=== PATIENT | female | born 1990 | race Two or more races ===

== ENCOUNTER 2024-07-25 19:20 | Emergency (ER) | payer OTHER ==
[~2024-07-25] VITALS: Ht 180.3 cm; Wt 100.0 kg
[2024-07-25] MEDS ORDERED: ceFAZolin IM 1GM/2.5ML STERILE WATER IM ONE (20:00)
[2024-07-25] MEDS ORDERED: AUG875T PO (20:04)
[2024-07-25 21:10] LABS: Urine Bacteria FEW /hpf (None Seen); Urine Blood Negative /uL (Negative); Urine Clarity Clear (Clear); Urine Color Yellow (Yellow); Urine Mucus FEW (None Seen); Urine Protein, UAD 1+ (Negative); Urine Specific Gravity 1.048 (1.001-1.035); Urine Urobilinogen 2 mg/dL (Negative); Urine WBC 3 /hpf (0 - 5)
[2024-07-25 22:00] VITALS: BP 110/74; PULSE 71; RESP 18; TEMP 98; O2SAT 98
[2024-07-25] MEDS: ceFAZolin 1GM VL ONE ×2 (22:06→22:07)
[2024-07-25] MEDS: ceFAZolin IM 1GM/2.5ML STERILE WATER IM ONE (22:11)
== END 2024-07-25 23:07 | disposition home or self-care (01) ==
LOC: ER 19:20
DX: L03.317 Cellulitis of buttock (principal); L02.31 Cutaneous abscess of buttock
CPT/HCPCS: 81001; 96372; 99283; J0690

== ENCOUNTER 2024-11-13 06:20 | Emergency (ER) | payer OTHER ==
[~2024-11-13] VITALS: Ht 180.3 cm; Wt 102.7 kg
[~2024-11-13 06:20] MED LIST: AUG875T PO
[2024-11-13 07:15] VITALS: BP 116/83; PULSE 78; RESP 16; TEMP 98.8; O2SAT 99
--- NOTE | 2024-11-13 08:26 | ED.PDOC ---
EDITORIAL CARTOONIST HPI Comments A 34 YEAR OLD FEMALE PRESENTS TO THE ED WITH COMPLAINT OF LEFT-SIDED PELVIC PAIN. PATIENT STATES SHE HAS BEEN EXPERIENCING LEFT-SIDED PELVIC PAIN FOR THE PAST 3 DAYS. PATIENT REPORTS SHE WENT TO AN URGENT CARE YESTERDAY WHERE SHE WAS TOLD SHE MIGHT HAVE AND LEFT OVARIAN CYST DESPITE NO IMAGING BEING DONE AND WAS INSTRUCTED TO GO TO THE ED FOR EVALUATION. PATIENT DENIES DYSURIA, HEMATURIA, VAGINAL DISCHARGE, FEVER, CHILLS, SHORTNESS OF BREATH, CHEST PAIN, ABDOMINAL PAIN, NAUSEA, VOMITING, HEADACHE, OR OTHER COMPLAINTS. NO OTHER SYMPTOMS OR MODIFYING FACTORS AT THIS TIME. PATIENT IS ALERT, ORIENTED X 4, AND HAS STEADY GAIT. Chief Complaint: Pelvic Pain Time Seen by MD: 07:00 Reviewed Notes: Nurses Notes, Medications, Allergies Allergies: Coded Allergies: NO KNOWN ALLERGIES (Unverified , 07/25/24) Home Meds Active Scripts Amoxicillin & Pot Clavulanate (AUGMENTIN TABLET) 875 Mg Tb, 875 MG PO BID for 10 Days, #20 TAB Prov:SUJATHA KELLER MD 07/25/24 Information Source: Patient Mode of Arrival: Ambulatory Timing: Days Prehospital treatment: None Severity: Moderate Vaginal Discharge: None Vaginal Lesions: None Vaginal Mass: None Onset Of Mass/Bleeding: Spontaneous Sexual Activity: Neither Last Consensual [place]: Unknown Control: None Blood Type: Unknown Symptoms of Possible : None Associated Signs and Symptoms: Other (LEFT PELVIC PAIN) Past Medical History PAST MEDICAL HISTORY: Denies Surgical History: Denies all surgeries 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 Hx Family History Family History: Reviewed,noncontributory to illness Social History Smoker: Non-Smoker Alcohol: Denies ETOH Use Drugs: Denies Drug Use Lives In: Home Constitutional: denies: chills, diaphoresis, fatigue, fever, malaise, sweats, weakness, others EENTM: denies: blurred vision, double vision, ear bleeding, ear discharge, ear drainage, ear pain, ear ringing, eye pain, eye redness, hearing loss, mouth pain, mouth swelling, nasal discharge, nose bleeding, nose congestion, nose pain, photophobia, tearing, throat pain, throat swelling, voice changes, others Respiratory: denies: cough, hemoptysis, orthopnea, SOB at rest, shortness of breath, SOB with excertion, stridor, wheezing, others Cardiovascular: denies: chest pain, dizzy spells, diaphoresis, Dyspnea on ex ertion, edema, irregular heart beat, left arm pain, lightheadedness, palpitations, PND, syncope, others Gastrointestinal: denies: abdomen distended, abdominal pain, blood streaked bowels, constipated, diarrhea, dysphagia, difficulty swallowing, hematemesis, melena, nausea, poor appetite, poor fluid intake, rectal bleeding, rectal pain, vomiting, others Genitourinary: reports: pain (LEFT-SIDED PELVIC PAIN); denies: abnormal vagina bleeding, burning, dyspareunia, dysuria, flank pain, frequency, hematuria, incontinence, , vagina discharge, urgency, others Neurological: denies: dizziness, fainting, headache, left sided numbness, left sided weakness, numbness, paresthesia, pre-existing deficit, right sided numbness, right sided weakness, seizure, speech problems, tingling, tremors, weakness, others Musculoskeletal: denies: back pain, gout, joint pain, joint swelling, muscle pain, muscle stiffness, neck pain, others Integumetry: denies: bruises, change in color, change in hair/nails, dryness, laceration, lesions, lumps, rash, wounds, others Allergic/Immunocompromised: denies: Difficulty Healing, Frequent Infections, Hives, Itching, others Hematologic/Lymphatic: denies: anemia, blood clots, easy bleeding, easy br uising, swollen glands, others Endocrine: denies: excessive hunger, excessive sweating, excessive thirst, excessive urination, flushing, intolerance to cold, intolerance to heat, unexplained weight gain, unexplained weight loss, others Psychiatric: denies: anxiety, bipolar disorder, depression, hopeless, panic disorder, schizophrenia, sleepless, suicidal, others All Other Systems: Reviewed and Negative Physical Exam General Appearance: No Apparent Distress, Normal HEENT: Normal ENT Inspection, PERRL/EOMI, Pharynx Normal, TMs Normal Neck: Full Range of Motion, Non-Tender, Normal, Normal Inspection Respiratory: Chest Non-Tender, Lungs Clear, No Accessory Muscle Use, No Respiratory Distress, Normal Breath Sounds Cardiovascular: No Edema, No JVD, No Murmur, No Gallop, Normal Peripheral Pulses, Regular Rate/Rhythm Breast Exam: Deferred Gastrointestinal: No Organomegaly, No Pulsatile Mass, Normal Bowel Sounds, So ft, Tenderness (LEFT LOWER PELVIC, NO GUARDING AND REBOUND TENDERNESS. ) Genitalia: Deferred Pelvic: Tender Adnexa (TENDERNESS LEFT PELVIC, NO GUARDING AND REBOUND TENDERNESS. ) Rectal: Deferred Extremities: No calf tenderness, Normal capillary refill, Normal inspection, Normal range of motion, Non-tender, No pedal edema Musculoskeletal : Apperance: Normal Neurologic: Alert, senior research executive II-XII nml as Tested, No Motor Deficits, Normal Affect, Normal Mood, No Sensory Deficits Cerebellar Function: Normal Reflexes: Normal Skin: Dry, Normal Color, Warm Peripheral Pulses: 2+ carotid (R), 2+ carotid (L) Lymphatic: No Adenopathy Was a procedure done? Was a procedure done?: No Differential Diagnosis (SHEET METAL TECHNICIAN) Vaginal Bleeding: N/A Mass / Lesion: N/A Vaginal Discharge: N/A Comments ACUTE UTI, ACUTE CYSTITIS, OVARIAN CYST, UTERINE FIBROID X-Ray, Labs, Meds, VS Vital Signs Date Time Temp Pulse Resp B/P (MAP) Pulse Ox O2 Delivery O2 Flow Rate FiO2 11/13/24 06:50 98.8 78 16 116/83 (94) 99 Lab Test 11/13/24 08:00 Range/Units Urine Color Light-yellow Yellow Urine Clarity Clear Clear Urine pH 5.5 5.0-9.0 Urine Specific [place] 1.016 1.001-1.035 Urine Protein Negative Negative Urine Ketones Negative Negative Urine Blood Negative Negative /uL Urine Nitrite Negative Negative Urine Bilirubin Negative Negative Urine Urobilinogen Normal Negative mg/dL Urine Leukocyte Esterase Negative Negative /uL Urine RBC 1 0 - 4 /hpf Urine WBC 2 0 - 5 /hpf Urine Squamous Epithelial Cells Few <5 /hpf Urine Bacteria Few H None Seen /hpf Urine Mucus Few None Seen Urine Glucose Normal Normal mg/dL Urine Test Negative Negative INDICATION: LEFT PELVIC PAIN TECHNIQUE: Multiple real-time grayscale transabdominal sonographic images along with color and duplex Doppler of the uterus and ovaries were obtained. COMPARISON: None FINDINGS: The uterus is heterogeneous and measures 16.5 cm. The endometrial stripe measures 1.8 cm. Multiple uterine fibroids are noted, the largest noted at the uterine fundus measuring 8.2 x 8.1 x 7.9 cm, not well visualized due to significant shadowing. The right ovary measures 6.6 x 4.9 x 4.9 cm. 3.6 cm anechoic and avascular structure with debris is noted within the right ovary. The left ovary is not visualized. Subsequent color and duplex Doppler interrogation demonstrated vascular flow to the right ovary. IMPRESSION: 1. Multiple uterine fibroids, the largest measuring 8.2 cm. 2. Possible right ovarian hemorrhagic cyst. ATED BY: CURTIS BORGES MD DICTATED DATE/TIME: 11/13/24939 SIGNED BY: CURTIS BORGES MD SIGNED DATE/TIME: 11/13/24939 CC: X-Ray, Labs, Meds, VS Comment EXTERNAL MEDICAL RECORDS REVIEWED: [NONE] INDEPENDENT HISTORIANS: [NONE] SOCIAL DETERMINANTS OF HEALTH: [NONE] LABS ORDERED: UA, URINE ,CBC, BMP REVIEWED AND INTERPRETED RESULTS: NORMAL IMAGING ORDERED: US PELVIS: [INTERPRETED BY US TECH. ENLARGED HETEROGENEOUS UTERUS SEEN. MULTIPLE HYPOECHOIC STRUCTURES WITH INCREASED VASCULARITY NOTED AND UTERUS LARGEST MEASURING 7.9 CM X 8.2 CM. RIGHT OVARIAN CYST MEASURING 3.6 CM X 2.5 CM VISUALIZED. LEFT OVARY IS NOT VISUALIZED. PENDING RADIOLOGY REVIEW.] TREATMENTS ORDERED: NONE PROCEDURES PERFORMED: NONE CRITICAL CARE TIME: NONE I HAVE DISCUSSED THE PATIENT WITH THE ATTENDING PHYSICIAN DR. REN AND HE AGREES WITH THE PATIENT'S PLAN OF CARE AND DISPOSITION. GIVEN THE HISTORY AND PRESENT ILLNESS OF THE PATIENT, AFTER REVIEWING LABS, IMAGING, AND COURSE OF TREATMENT ADMINISTERED DURING THEIR ED VISIT, THERE IS LOW SUSPICION FOR RED FLAG FINDINGS. BASED ON HISTORY OF PRESENT ILLNESS, AND PHYSICAL EXAM, PATIENT WILL BE DISCHARGED HOME. DISCUSSED PLAN FOR DISCHARGE HOME WITH RX [IBUPROFEN 800MG]. MEDICATION WARNINGS GIVEN. SHARED DECISION MAKING: DISCUSSED WITH PATIENT THAT THEIR WORKUP WAS NORMAL. PATIENT INSTRUCTED TO FOLLOW UP WITH PRIMARY CARE PROVIDER IN 1-2 DAYS FOR RE- EVALUATION OF SYMPTOMS. PATIENT VERBALIZES UNDERSTANDING TO RETURN TO ED FOR NEW OR WORSENING SYMPTOMS OR IF FOLLOW UP WITH PCP CANNOT BE OBTAINED. PATIENT FEELS COMFORTABLE GOING HOME AT THIS TIME. ALL QUESTIONS ADDRESSED AT TIME OF DISCHARGE. Images Reviewed?: Images reviewed and evaluated by me Time of 1ST Reevaluation: 10:18 Reevaluation 1ST: Improved Patient Education/Counseling: Diagnosis, Treatment, Need For Follow Up Family Education/Counseling: Diagnosis, Treatment, Need For Follow Up Medical Screening: No EMC Exist At This Time Departure 1 Departure Time of Disposition: 10:20 Impression: Primary Impression: Uterine fibroid Qualified Codes: D25.9 - Leiomyoma of uterus, unspecified Additional Impression: Right ovarian cyst Disposition: HOME / SELF CARE / HOMELESS Condition: Stable Additional Instructions: FOLLOW-UP WITH PCP IN 1 TO 2 DAYS. TAKE MEDICATIONS PRESCRIBED. RETURN TO ED FOR ANY NEW OR WORSENING SYMPTOMS. Written Prescriptions PT DECLINED PAIN MEDICATION AND RX. Discharged With: Self Critical Care Note Critical Care Time?: No Stability Stability form required: No I personally scribed for MARILOU LEE ([email or web address]) on 11/13/24 at 08:26. Electronically submitted by Ranjit Ribeiro ([employer]). I personally scribed for MARILOU LEE ([email or web address]) on 11/13/24 at 09:39. Electronically submitted by Ranjit Ribeiro ([employer]). I personally scribed for MARILOU LEE ([email or web address]) on 11/13/24 at 09:43. Electronically submitted by Ranjit Ribeiro ([employer]). I personally scribed for MARILOU LEE ([email or web address]) on 11/13/24 at 09:44. Electronically submitted by Ranjit Ribeiro ([employer]). MARILOU LEE Nov 13, 2024 08:26
[2024-11-13 08:39] LABS: Urine Bacteria FEW /hpf (None Seen); Urine Blood Negative /uL (Negative); Urine Clarity Clear (Clear); Urine Color Light-Yellow (Yellow); Urine Mucus FEW (None Seen); Urine Protein, UAD Negative (Negative); Urine Specific Gravity 1.016 (1.001-1.035); Urine Urobilinogen Normal (Negative); Urine WBC 2 /hpf (0 - 5); Urine pH 5.5 (5.0-9.0)
--- NOTE | 2024-11-13 09:42 | DVH ---
INDICATION: LEFT PELVIC PAIN TECHNIQUE: Multiple real-time grayscale transabdominal sonographic images along with color and duplex Doppler of the uterus and ovaries were obtained. COMPARISON: None FINDINGS: The uterus is heterogeneous and measures 16.5 cm. The endometrial stripe measures 1.8 cm. M ultiple uterine fibroids are noted, the largest noted at the uterine fundus measuring 8.2 x 8.1 x 7.9 cm, not well visualized due to significant shadowing. The right ovary measures 6.6 x 4.9 x 4.9 cm. 3.6 cm anechoic and avascular structure with debris is n oted within the right ovary. The left ovary is not visualized. Subsequent color and duplex Doppler interrogation demonstrated vascular flow to the right ovary. IMPRESSION: 1. Multiple uterine fibroids, the largest measuring 8.2 cm. 2. Possible right ovarian hemorrhagic cyst.
[2024-11-13 10:40] LABS: Basophils # (auto) 0 10 ^3/uL (0-0.2); Basophils % (auto) 0.9 % (0.0-2.0); Eosinophils # (auto) 0.1 10 ^3/uL (0-0.8); Eosinophils % (auto) 1.2 % (0.0-7.0); Hemoglobin 13.5 g/dL (12.2-16.2); Lymphocytes # (auto) 1.8 10 ^3/uL (0.4-5.4); Mean Corpuscular Hemoglobin 30.3 pg (28.0-32.0); Mean Corpuscular Hgb Conc. 33.8 g/dL (32.0-36.0); Mean Corpuscular Volume 89.6 fL (80.0-100.0); Monocytes # (auto) 0.4 10 ^3/uL (0-1.3); Neutrophils # (auto) 3.2 10 ^3/uL (1.6-8.6); Neutrophils % (auto) 57.9 % (37.0-80.0); Nucleated Red Blood Cells % 0.1 %; Platelet Count (auto) 237 10^3/uL (140-450); Red Blood Cells 4.47 10^6/uL (4.0-5.20); Red Cell Distribution Width 13.4 % (11.8-14.3); White Blood Cell 5.5 10^3/uL (4.4-10.8)
[2024-11-13 10:42] LABS: Chloride 105 mmol/L (98-107); Potassium 4.5 mmol/L (3.5-5.1); Sodium 137 mmol/L (136-145)
[2024-11-13 10:43] LABS: Anion Gap 6 (5-15); Calcium 9.9 mg/dL (8.7-10.4); Carbon Dioxide 26 mmol/L (20-31)
[2024-11-13 10:48] LABS: BUN/Creatinine Ratio 13.3 (10.0-20.0); Blood Urea Nitrogen 12 mg/dL (9-23); Glucose 76 mg/dL (74-106)
== END 2024-11-13 10:20 | disposition home or self-care (01) ==
LOC: ER 06:20
DX: D25.9 Leiomyoma of uterus, unspecified (principal); N83.201 Unspecified ovarian cyst, right side
CPT/HCPCS: 36415; 76856; 80048; 81001; 81025; 85025